=== PATIENT | female | born 1970 | race Caucasian/White ===

== ENCOUNTER 2016-09-22 13:36 | Emergency (ER) | payer SELFPAY ==
--- NOTE | 2016-09-22 14:17 | ER Document Report ---
ED Medical Screen (RME) - General Stated Complaint: MEDICATION REFILL Notes: Patient states she is here today for medication refill on Xanax and Adderall. Has a history of panic attacks. Patient missed her appointment at [facility] today. States she was told to come here and we could call and talk to to get authorization for meds. I have greeted and performed a rapid initial assessment of this patient. A comprehensive ED assessment and evaluation of the patient, analysis of test results and completion of the medical decision making process will be conducted by additional ED providers. (MERI GILLETTE) Physical Exam - General General appearance: Appears well In distress: None - Vital signs Vitals: Temp Pulse Resp BP Pulse Ox 97.4 F 108 H 18 111/91 H 98 09/22/16 14:03 09/22/16 14:03 09/22/16 14:03 09/22/16 14:03 09/22/16 14:03 - General Notes: No acute distress noted. Patient is talking rapidly. (MERI GILLETTE) Course - Re-evaluation Re-evalutation: 09/22/16 16:45 Patient currently has no thoughts of self-harm or harm against others. She does not meet any commitment criteria at this point. She has scheduled follow- up for next week. (FADY CLARKE) - Vital Signs Vital signs: Temp Pulse Resp BP Pulse Ox 97.4 F 108 H 18 111/91 H 98 09/22/16 14:03 09/22/16 14:03 09/22/16 14:03 09/22/16 14:03 09/22/16 14:03 Doctor's Discharge - Discharge Clinical Impression: Encounter for medication refill, Panic disorder with agoraphobia Condition: Good Disposition: HOME, SELF-CARE Instructions: Panic Attack ([facility]) Additional Instructions: Please follow up with provide on Sunday for further medication management. Please remind them that we do not refill controlled substances and rarely can prescribe more than 1-2 days of medication. Please return for worsening or concern. Prescriptions: Lorazepam [Ativan 1 mg Tablet] 1 mg PO Q8HP PRN #7 tab PRN Reason: Forms: Smoking Cessation Education Referrals: [facility] [place] [Provider Group] - 09/25/16
--- NOTE | 2016-09-22 17:11 | ER Document Report ---
ED General - General Chief Complaint: Medication Refill Stated Complaint: MEDICATION REFILL Time seen by provider: 16:45 Mode of Arrival: Ambulatory Information source: Patient Notes: Patient is a 46 year old female presenting to the emergency department for medication refill. Patient states that she missed her appointment with [facility]. Patient has another appointment with them on 09/28/16. Patient is requesting Xanax and Adderall; patient states she was told to come here to get these medications. Patient was told that we do not fill those types of medications here in the emergency department. Patient states she was taken off these medications about 6 months ago but they were prescribed by another physician. Patient states that she panic attacks and she has anxiety. Patient writes in her patient note that she is "a mess, can't focus, and is afraid to leave her house." Patient does not verbalize any suicidal or homicidal ideation or other psychiatric disorders. Patient has no known allergies. TRAVEL OUTSIDE OF THE [place] IN LAST 30 DAYS: No - HPI Onset: Other - see HPI note Quality of pain: No pain Associated symptoms: None - Related Data Allergies/Adverse Reactions: No Known Allergies Allergy (Unverified 09/22/16 14:17) Past Medical History - General Information source: Patient - Social History Smoking Status: Current Every Day Smoker Chew tobacco use (# tins/day): No Frequency of alcohol use: None Drug Abuse: None Family History: None Psychiatric Medical History: Reports: Hx Anxiety, Other - "panic attacks" Review of Systems - Review of Systems Constitutional: No symptoms reported EENT: No symptoms reported Cardiovascular: No symptoms reported Respiratory: No symptoms reported Gastrointestinal: No symptoms reported Genitourinary: No symptoms reported Female Genitourinary: No symptoms reported Musculoskeletal: No symptoms reported Skin: No symptoms reported Hematologic/Lymphatic: No symptoms reported Neurological/Psychological: See HPI, Anxiety -: Yes All other systems reviewed and negative Physical Exam - Vital signs Vitals: Temp Pulse Resp BP Pulse Ox 97.4 F 108 H 18 111/91 H 98 09/22/16 14:03 09/22/16 14:03 09/22/16 14:03 09/22/16 14:03 09/22/16 14:03 Interpretation: Tachycardic - Notes Notes: GENERAL: Thin-appearing, awakens from sleep easily and in no acute distress HEAD: Atraumatic, normocephalic EYES: Pupils equal round and reactive to light, extraocular movements intact, sclera anicteric, no conjunctival injection or discharge ENT: Nares patent, oropharynx clear without exudates, moist mucous membranes NECK: Normal range of motion, supple without lymphadenopathy LUNGS: Coarse breath sounds bilaterally. No wheezes rales or rhonchi. HEART: Regular rate and rhythm without murmurs ABDOMEN: Soft, non-tender, normoactive bowel sounds. No guarding, no rebound. No masses appreciated. No Brainard sign BACK: No CVA tenderness. EXTREMITIES: Normal range of motion, no calf tenderness, no edema NEUROLOGICAL: Cranial nerves grossly intact. Normal speech, Normal sensory and motor exams. No gross cerebellar abnormalities PSYCH: Calm, directable, No tangential or circumferential thought processes noted, Normal mood, normal affect. No evidence of active hallucinations, delusions, or paranoia. No report of suicidal or homicidal ideation, recent and distant memory intact, No evidence of intoxication. SKIN: Warm, Dry, normal turgor, no lesions noted Course - Vital Signs Vital signs: Temp Pulse Resp BP Pulse Ox 97.9 F 80 18 100/89 H 98 09/22/16 16:30 09/22/16 16:30 09/22/16 16:30 09/22/16 16:30 09/22/16 16:30 - Consults [facility] Time consulted: 16:30 Reason for consultation: 09/22/16 16:30 Contacted [facility] at [phone]. The said they have seen and evaluated the patient in the past; the patient missed her appointment today. Patient was told that she could be worked in next week for an appointment. They did not tell her she could have meds refilled here at the ED. Discharge - Discharge Clinical Impression: Encounter for medication refill, Panic disorder with agoraphobia Condition: Good Disposition: HOME, SELF-CARE Instructions: Panic Attack ([facility]) Additional Instructions: Please follow up with provide on Sunday for further medication management. Please remind them that we do not refill controlled substances and rarely can prescribe more than 1-2 days of medication. Please return for worsening or concern. Prescriptions: Lorazepam [Ativan 1 mg Tablet] 1 mg PO Q8HP PRN #7 tab PRN Reason: Forms: Smoking Cessation Education Referrals: [facility] [place] [Provider Group] - 09/25/16 Scribe Documentation - Scribe Written by Scribe:: Valentina Tafoya 09/22/16 17:30 acting as scribe for :: Sofi
[2016-09-22 21:43] VITALS: BP 100/89
== END 2016-09-22 16:30 | disposition home or self-care (01) ==
LOC: ER 13:36
DX: Z76.0 Encounter for issue of repeat prescription (principal); F40.01 Agoraphobia with panic disorder; Z79.899 Other long term (current) drug therapy
CPT/HCPCS: 99281